=== PATIENT | female | born 1990 | race Caucasian/White ===

== ENCOUNTER 2018-09-13 20:41 | Observation (INO) | payer OTHER ==
[~2018-09-13] VITALS: Ht 157.5 cm; Wt 83.9 kg
[2018-09-13] MEDS ORDERED: ONDANSETRON HCL 4MG/2ML INJ IM NR (21:00)
[2018-09-13] MEDS ORDERED: LACTATED RINGERS 1,000 ML IV SCH (21:00)
[2018-09-13 21:35] LABS: CLARITY URINE CLEAR (CLEAR); COLOR URINE YELLOW (YELLOW); KETONES URINE 3+ (NEGATIVE); LEUKOCYTE ESTERASE URINE NEGATIVE (NEGATIVE); NITRITE URINE NEGATIVE (NEGATIVE); OCCULT BLOOD URINE NEGATIVE (NEGATIVE); PH URINE 7.5 (4.5-8.0); PROTEIN URINE TRACE (NEGATIVE); SPECIFIC GRAVITY URINE 1.023 (1.005-1.030); UROBILINOGEN URINE 0.2 E.U./dL (0.2-1.0)
[2018-09-13 21:37] LABS: HEMATOCRIT. 38.8 % (36.0-48.0); HEMOGLOBIN. 12.5 g/dL (12.0-16.0); MEAN CORPUSCULAR HEMOGLOBIN 26.6 pg (28.0-32.0); MEAN CORPUSCULAR VOLUME 82.5 fL (81.0-99.0); MEAN PLATELET VOLUME 9.7 fl (7.4-10.4); PLATELET 316 x1000/uL (130-400)
[2018-09-13 21:40] LABS: CHLORIDE 107 mEq/L (98-107)
[2018-09-13 22:16] LABS: PLATELET ESTIMATE NORMAL
[2018-09-13] MEDS ORDERED: PNV1TABL50 MT (22:50)
== END 2018-09-13 23:13 | disposition home or self-care (01) ==
LOC: 8 EST LDRP 20:41
PROVIDERS: ADMIT Obstetrics & Gynecology; ATTEND Obstetrics & Gynecology
DX: O21.2 Late vomiting of pregnancy (principal); O62.9 Abnormality of forces of labor, unspecified; Z3A.33 33 weeks gestation of pregnancy
CPT/HCPCS: 36415; 80053; 81003; 82731; 85025; 96360; 96361; 96372; 99281; G0378; J2405; 96365